=== PATIENT | female | born 2000 | race Caucasian/White ===

== ENCOUNTER 2021-02-18 13:17 | Emergency (ER) | payer OTHER, MEDICAID ==
[~2021-02-18] VITALS: Ht 165.1 cm; Wt 61.0 kg
[2021-02-18] MEDS ORDERED: HALOPERIDOL LACTATE 5MG/ML VIAL IM NR (16:00)
[2021-02-18 17:05] LABS: HEMATOCRIT. 37.1 % (36.0-48.0); HEMOGLOBIN. 12.2 g/dL (12.0-16.0); MEAN CORPUSCULAR HEMOGLOBIN 23.2 pg (28.0-32.0); MEAN CORPUSCULAR VOLUME 70.8 fL (81.0-99.0); MEAN PLATELET VOLUME 9.3 fl (7.4-10.4); PLATELET 305 x1000/uL (130-400); RED BLOOD CELL COUNT 5.24 mill/uL (4.2-5.4); RED CELL DISTRIBUTION WIDTH 15.9 % (11.6-14.6)
[2021-02-18] MEDS ORDERED: MAGNESIUM/ALUMINUM HYDROXIDE/SIMETHICONE 30ML UDC PO STA (17:10)
[2021-02-18] MEDS ORDERED: DICYCLOMINE 10 MG/5 ML ORAL SYR PO STA (17:10)
[2021-02-18] MEDS ORDERED: ONDANSETRON HCL 4MG/2ML INJ IV STA (17:10)
[2021-02-18 17:11] LABS: CHLORIDE 111 mEq/L (98-107)
[2021-02-18 17:14] LABS: HCG SCREEN NEGATIVE
[2021-02-18] MEDS ORDERED: SODIUM CHLORIDE 0.9% 1,000 ML IV ONE (17:15)
[2021-02-18 17:25] LABS: PLATELET ESTIMATE NORMAL
[2021-02-18] MEDS ORDERED: ONDA4TAB5 MT (19:05)
[2021-02-18] MEDS ORDERED: OMEP40CA12 MT (19:05)
[2021-02-18 19:09] VITALS: BP 101/60
== END 2021-02-18 19:21 | disposition home or self-care (01) ==
LOC: ER 13:17
DX: R07.9 Chest pain, unspecified (principal); R11.2 Nausea with vomiting, unspecified; R20.8 Other disturbances of skin sensation; Z79.899 Other long term (current) drug therapy; E86.0 Dehydration
CPT/HCPCS: 36415; 71045; 80048; 80076; 81025; 83690; 84484; 84703; 85025; 85379; 93005; 96361; 96372; 96374; 99285; J1630; J2405; J7030; Z7610